=== PATIENT | female | born 1970 | race Hispanic/Latino ===

== ENCOUNTER 2025-01-26 10:03 | Outpatient (CLI) | payer OTHER, SELFPAY ==
--- NOTE | ~2025-01-26 | MM_ITS ---
EXAMINATION: MM scrn kd implant BI w flores HISTORY: Screening mammogram TECHNIQUE: Craniocaudal and mediolateral oblique 3-D tomosynthesis images with implant displacement a nd synthetic 2-D images were generated. Craniocaudal and mediolateral oblique views of the breasts wi thout implant displacement were obtained using full field digital mammography. CAD analysis was submi tted and interpreted. COMPARISON: No prior mammogram is available for comparison at this institution. BREAST PARENCHYMAL COMPOSITION: There are scattered areas of fibroglandular density. FINDINGS: There is asymmetry at the outer right breast. No parenchymal abnormality the left breast se en. No suspicious microcalcifications. IMPRESSION: Outer right breast asymmetry. Spot compression views and possibly ultrasound are recommended for furt her evaluation.. BI-RADS Category 0: Incomplete: Needs additional imaging evaluation. Reviewed, dictated and finalized at location . IMPRESSION: Outer right breast asymmetry. Spot compression views and possibly ultrasound ar e recommended for further evaluation.. BI-RADS Category 0: Incomplete: Needs additional imaging evaluation.
== END 2025-01-26 10:04 | disposition home or self-care (01) ==
LOC: ANHIMG 10:04
PROVIDERS: PCP Clinical Nurse Specialist; Visit Provider Obstetrics & Gynecology
DX: Z12.31 Encounter for screening mammogram for malignant neoplasm of breast (principal); N64.89 Other specified disorders of breast
CPT/HCPCS: 77063; 77067

== ENCOUNTER 2025-02-09 12:45 | Outpatient (CLI) | payer OTHER, SELFPAY ==
--- NOTE | ~2025-02-09 | MMUS_ITS ---
EXAMINATION: MM diag dk implant RT w flores, US breast RT limited HISTORY: Follow-up right breast asymmetry TECHNIQUE: Additional 3-D tomosynthesis images of the right breast were performed and synthetic 2-D i mages were generated. CAD analysis was submitted and interpreted. High resolution Limited right breas t ultrasound was performed. COMPARISON: 01/26/2025 BREAST PARENCHYMAL COMPOSITION: Not dense: There are scattered areas of fibroglandular density. FINDINGS: MAMMOGRAPHIC FINDINGS: There is a persistent asymmetry in the mid lateral aspect breast at approximately 9:00 position witho ut discrete mass or architectural distortion. There are no suspicious calcifications. There is a subp ectoral right breast implant. ULTRASOUND: Limited right breast ultrasound: At 10:00, 2 cm from the nipple there is 2 mm cyst. At 9:00, 2 cm fro m the nipple there is 2 mm cyst. No suspicious masses to suggest malignancy. IMPRESSION: 1. No evidence for malignancy in the right breast. Benign findings. 2. Routine yearly screening mammogram and regular clinical breast examination are recommended. BI-RADS Category 2: Benign finding(s). Reviewed, dictated and finalized at location B. IMPRESSION: 1. No evidence for malignancy in the right breast. Benign findings. 2. Routine yearly screening mammogram and regular clinical breast examination a re recommended. BI-RADS Category 2: Benign finding(s).
--- OUTSIDE RECORDS SUMMARY | 2025-02-09 12:54 | XMS_ITS | Data Portability ---
Author Organization [place] - Mery OBKASIE CASEY, [employer] Address 1944 [address] [place] [address] Assessment No assessment recorded. Plan of Treatment Reminders Order Date Submit Date Provider Last Modified By Organization Details Last Modified Time Details Appointments None recorded. Lab unlisted lab - igp, apt HPV,rfx 16/18,45-1 16690-B 2018 019 [place] [facility], [address] [place], [address], 0 05:00:23 Referral None recorded. Procedures None recorded. Surgeries None recorded. Imaging MAMMO, screening, digital, bilateral 2018 019 [place] [facility], [address] [place], [address], 9 09:44:25 Medication Orders None recorded. Patient TargetsNo targets recorded. Patient Instructions Encounter Date Encounter Id Patient Instructions Last Modified By Organization Details Last Modified Time 03/07/2019 [id number] discussion: 30 minutes. f/u annual or sooner as needed [email or web address] Not available 03/07/2019 17:58:35 Reason for Referral None Reported. Results Created Date Observation Date Name Description Value Unit Range Abnormal Flag Note LastModifiedBy Organization Detail LastModifiedTime 03/07/20 19 03/10/2019 CT + NG + TV, DNA, urine /swab chlamydia trachomatis by multiplex PCR Not Detect ed Not Available [facility] ([facility]) [address], [place], [address], 03/13/2019 15:13:40 03/07/20 19 03/10/2019 CT + NG + TV, DNA, urine /swab GC by multiplex PCR Not Detect ed Not Available [facility] ([facility]) [address], [place], [address], 03/13/2019 15:13:40 03/07/20 19 03/10/2019 CT + NG + TV, DNA, urine /swab trichomonas by multiplex PCR Not Detect ed Not Available [facility] ([facility]) [address], [place], [address], 03/13/2019 15:13:40 03/07/20 19 03/10/2019 pap, LB + HR HPV + refle x HPV (16+1 8) HPV high risk DNA (non 16/18) Not Detect ed Not Available [facility] ([facility]) [address], [place], [address], 03/13/2019 15:13:41 03/07/20 19 03/10/2019 pap, LB + HR HPV + refle x HPV (16+1 8) HPV high risk DNA type 18 Not Detect ed Not Available [facility] ([facility]) [address], [place], [address], 03/13/2019 15:13:41 03/07/20 19 03/10/2019 pap, LB + HR HPV + refle x HPV (16+1 8) HPV high risk DNA type 16 Not Detect ed CHLAM YDIA TRACH OMATI S BY MULTI PLEX PCR (1,5, 6) GC BY MULTI PLEX PCR (1,5, 6) TRICH OMONA S BY MULTI PLEX PCR (1,5, 6) HPV High Risk DNA (Non 16/18 ) (2,3, 4,5,6 ) HPV High Risk DNA Type 18 (2,3, 4,5,6 ) HPV High Risk DNA Type 16 (2,3, 4,5,6 ) (1) This test is an in vitro test for the detec tion of sexua lly trans mitte d infec tions (STIs ) in clini monica speci mens. The test utili zes ampli ficat ion of targe t DNA by the Polym erase Chain React ion (PCR) based on dual primi ng oligo nucle otide techn ology and detec ts STI DNA. (2) The emelina (R) HPV test is FDA-c leare d for ThinP rep(R ) speci mens and detec ts genom ic HPV DNA in the polym orphi c L1 regio n in 14 subty pes: Type 16, Type 18, and other high risk types (31,3 3,35, 39,45 ,51,5 2,56, 58,59 ,66,6 8). The test has been modif ied and valid ated for use in SureP ath(T M) speci mens. (3) HPV types 16 and/o r 18 that were Not Detec darcy were undet ectab le or below the pre-s et thres hold. (4) The non-r epeat rate for HPV genot yping assay s varie s from 5 to 15%. In the NILM cytol ogy categ ory, there is a low posit ajay predi ctive value (PPV = 15-20 %) for CIN2+ with a posit ajay high risk HPV resul t. (5) This test was evalu ated and its perfo rmanc e sheridan cteri stics deter mined by [facility]. It has not been clear ed or appro tali by the U.S. Food and Drug Admin istra tion. The FDA has deter mined that such clear ance or appro mable is not neces rebeca. [facility] is certi fied under the Clini monica Labor atory Impro vemen t Amend ments of 1987 (CLIA ) as quali fied to perfo rm high compl exity clini monica testi ng. This test is used for clini monica purpo ses. It shoul d not be regar ded as inves tigat ional or for resea rch. (6) Resul ts shoul d be inter prete d toget her with past and curre nt clini monica and labor atory data. Not Available [facility] ([facility]) [address], [place], [address], 03/13/2019 15:13:41 03/07/20 19 03/13/2019 pap, LB + HR HPV + refle x HPV (16+1 8) Pap, liquid-based NILM DIAGN OSIS: Negat ajay for intra epith elial lesio n or malig kenn ADEQU ACY: Satis facto ry for evalu ation / Endoc ervic al/tr ansfo rmati on zone compo nent prese nt. COMME NT: This Pap smear was scree nevaeh with the laurel tance of the CYTYC ThinP rep(T M) Imagi ng Syste m and scree nevaeh by a cytot echno logis t. SPECI MEN SOURC E: Pap and HPV DNA Genot yping 16,18 , CERVI MONICA ENDOC ERVIC AL CLINI [facility] INFOR MATIO N: LMP: N/A Provi ded Diagn osis Codes : Z11.5 1 Cervi covag inal cytol ogy shoul d be consi dered a scree robby proce dure subje ct to false negat mitchell and false posit mitchell. Resul ts are more relia ble when a satis facto ry sampl e is obtai nevaeh on a regul ar repet itive basis , and shoul d be inter prete d toget her with past and curre nt clini monica data. ELECT TALISHA JACY MELLISA D BY: Scree nevaeh By: Matteo ackerman, CT (ASCP ) Case Elect talisha jacy Mellisa d 03/13 Cytol ogy scree robby and inter preta tion perfo rmed at: [facility] [address] [place] [address] Not Available [facility] ([facility]) [address], [place], [address], 03/13/2019 15:13:41 03/14/20 19 03/14/2019 MAMMO , kristene robby, digit al, bilat eral No observ ation record ed. [facility] [address] [place], [address], 03/14/2019 14:19:37 Result Notes None recorded. Problems No Known Problems Procedures Surgical History Date Name Laterality Status Provider Name and Address Organization Details Recorded Time 03/04/20 18 Date of Last Pap Smear completed [employer] 03/07/2019 16:20:28 02/27/20 18 Most Recent Mammogram completed [facility] 03/07/2019 16:20:42 07/30/19 15 abdominoplasty completed [facility] 03/07/2019 16:30:08 07/30/19 13 Gastroplasty duodenal switch completed [facility] 03/07/2019 16:29:46 07/30/19 08 Gastroplasty w/o v-band completed [facility] 03/07/2019 16:28:27 07/30/18 93 tonsillectomy completed [facility] 03/07/2019 16:28:07 Imaging Results None recorded. Procedure Notes None recorded. Medical Equipment None Reported. Allergies Allergen ID Allergen Name Allergen Category Reaction Reaction Severity Criticality Documentation Date Start Date Code Code System Note Provider Name and Address Organization Details Recorded Time 06489 Bactrim medicatio n rash severe Not available 03/07/2019 58584 9 [employer] 9 16:16:23 Medications Name Sig Start Date Stop Date Status Note LastModified by Organization Details LastModified Time ammonium lactate 12 % lotion 2018 completed Not Available Not Available Not Available fluocinonide 0.05 % topical cream 2018 completed Not Available Not Available Not Available Vitals Date Recorded Body height Body mass index (BMI) Body weight Systolic And Diastolic Provider Name and Address Organization Details Last Updated DateTime 03/07/2019 162.56 cm 30.7 kg/m2 85320.03 g 117/66 mm[Hg] [facility]ANE [facility] [employer] 03/07/2019 16:33:05 Social History Question Answer Notes LastModified by [employer] Details LastModified Time Tobacco Smoking Status Never Smoker DUANE MCGR[facility] [employer] 03/07/2019 16:25:02 What Is Your Level Of Caffeine Consumption? Moderate Information not available 03/07/2019 What Type Of Diet Are You Following? REGULAR Information not available 03/07/2019 Which Illicit Or Recreational Drugs Have You Used? None Information not available 03/07/2019 Education 2 Year College Information not available 03/07/2019 Marital Status Informatio n not available 03/07/2019 Performs Monthly Self-breast Exam? Yes Information no t available 03/07/2019 How Much Tobacco Do You Smoke? No Information not available 03/07/2019 General Stress Level Low Information not available 03/07/2019 How Many Years Have You Smoked Tobacco? 0 Information not available 03/07/2019 Sex: Unknown Functional Status Question Answer Note LastModified by [employer] Details LastModified Time What is your level of alcohol consumption? Occasional Information not available 03/07/2019 Do you or have you ever used smokeless tobacco? 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 Never used electronic cigarettes Information not available 03/07/2019 What is your exercise level? Occasional Information not available 03/07/2019 Mental Status None recorded. Family History Relationship Description Onset Age of this Age Resolved Age Notes LastModified by Organization Details LastModified Time Mother Hypertensive disorder 40 sdaravina Not available 2018 16:23:34 Father Malignant neoplasm of squamocolumn ar junction of cervix 72 sdaravina Not available 2018 16:24:50 Medical History Condition Response Anesthesia complications N High Blood Pressure N Breast Cancer N Kidney or Bladder Problems N Thyroid Problems N GI Problems N Lung Disease N Depression N Defects or Inherited Disease N Breast Problem N Anemia N Skin Cancer/Melanoma N Psychiatric Illness N Anxiety Disorder N Ovarian Cancer N Diabetes N Arthritis N Headaches or Migraines N Infertility N Cancer N Asthma N High cholesterol N Endometriosis N Hepatitis N Heart Disease N Gynecological History Statement/Question Response Abnormal Pap N Flow Light Date of LMP 10/18/2018 STIs/STDs N HPV Vaccine N Duration of Flow (days) 0 Most Recent Mammogram 02/26/2018 Age at Menarche 13 Current Control Method IUD Date of Last Colonoscopy Frequency of Cycle (Q days) 0 Most Recent Bone Density Sexually Active? Y Menses Monthly Y Sexual Problems? N Date of Last Pap Smear 03/04/2018 Current sexual partner NEW? N Hormone Replacement Therapy N Obstetrics History GPAL:G 3 P 0 0 1 2 Type Value Spontaneous 1 Living 2 Total 3 Past Encounters Encounter ID Performer Location Encounter Start Date Encounter Closed Date Diagnosis/Indication Diagnosis SNOMED-CT Code Diagnosis ICD10 Code Diagnosis Note [id number] LUAN MENDOSA PA-C [facility] [address] [address] 03/07/2019 15:59:53 03/07/2019 17:12:39 Gynecologic examination 01509784 Z01.419 Viral screening 43347077 4 Z11.51 Screening for malignant neoplasm of breast 416645555 Z12.31 Contraception care 61091 5005 Z30.40 Mirena IUD since 2016 Screening for malignant neoplasm of cervix 066961612 Z12.4 Health Concerns Section Related Observation LastModified by Organization Detai ls LastModified Time None Recorded Concern Status LastModified by Organization Details LastModified Time None Recorded Advance Directives Directive None Recorded Payers Insurance Date Sequence Insurance Name Policy Number Policy Looney Covered Member ID Looney Member ID Guarantor Name 03/13/2019 1 AETWENDI [id number] Funmi Paul [id number] Funmi Paul Notes Date Note Type Note Provider Name and Address Organization Details Recorded Time 03/07/2019 text/html Annual GYNReport ed bypatient.History: no gynecologic complaints; no change in interval history Menstrual cycle:Normal menses Urinary symptoms:No hematuria; No incontinence Vulva:No genital lesion Vagina:Normal vaginal discharge Breast:No breast pain; No breast lump; No nipple discharge Current Contraception:Intr auterine device (iud) (Mirena 2016); Partner had vasectomy (Patient insisted on Mirena IUD insertion because she was still concerned for ) Sexual complaints:No sexual complaints; No pain during intercourse; Normal libido Menopausal Symptoms:No menopausal symptoms; Normal vaginal lubrication Psychological symptoms:No depression; No anxiety; No PMDD Preventive measures:Encourage self breast examination; Encourage regular exercise; Encourage no tobacco use; Needs to schedule mammogram JEREMI Vidal [facility] 03/07/2019 17:58:44 OBGyn Episode Ob Episode Information Episode Created Date Number of Fetuses Patient Bloodtype Patient rh Status Prepregnancy Weight lbs Domestic Partner Domestic Partner Phone Father Name Coppersmith Apprentice Status 03/07/20 19 1 CLOSED Fetus Data First Name Last Name Admitted to NICU Weight (g) Sex Living Outcome Pediatric Complications Fetus ID Race Codes Race Delivery Type 4025.62 9 M Full Term [id number] Young Calculation Initial Young Date Initial Exam Date Initial Exam Provider Initial Ultrasound Date Last Menstrual Period Date Ultra Sound Weeks Gestation 0 Eighteen To Twenty Week Young Update Ultra Sound Date Fundal Height At Umbil Quickening Date Ultra Sound Latest Weeks Gestation Final Young Confirmed By Final Young Confirmed Date Final Young Date Ultra Sound Latest Days Gestation 0 0 Menstrual History Last Menstrual Date Menses Monthly On Bcp Conception Prior Menses Frequency Hcg Plus Date Menarche Onset Age Delivery Information Delivery Date Delivery Type Labor Anesthesia Weeks Gestation Incision Type Labor Labor Length Hrs Delivered By Post Complications Tubal Sterilization Discharge Date Comments 5 39 Discharge Information Feeding Method Contraceptive Method Maternal HG B and HCT Levels Ob Episode Information Episode Created Date Number of Fetuses Patient Bloodtype Patient rh Status Prepregnancy Weight lbs Domestic Partner Domestic Partner Phone Father Name Coppersmith Apprentice Status 03/07/20 19 1 CLOSED Fetus Data First Name Last Name Admitted to NICU Weight (g) Sex Living Outcome Pediatric Complications Fetus ID Race Codes Race Delivery Type 3175.14 4 M Full Term [id number] Young Calculation Initial Young Date Initial Exam Date Initial Exam Provider Initial Ultrasound Date Last Menstrual Period Date Ultra Sound Weeks Gestation 0 Eighteen To Twenty Week Young Update Ultra Sound Date Fundal Height At Umbil Quickening Date Ultra Sound Latest Weeks Gestation Final Young Confirmed By Final Young Confirmed Date Final Young Date Ultra Sound Latest Days Gestation 0 0 Menstrual History Last Menstrual Date Menses Monthly On Bcp Conception Prior Menses Frequency Hcg Plus Date Menarche Onset Age Delivery Information Delivery Date Delivery Type Labor Anesthesia Weeks Gestation Incision Type Labor Labor Length Hrs Delivered By Post Complications Tubal Sterilization Discharge Date Comments 1 37 Discharge Information Feeding Method Contraceptive Method Maternal HG B and HCT Levels
--- OUTSIDE RECORDS SUMMARY | 2025-02-09 12:54 | XMS_ITS | Data Portability ---
Author Organization [facility], URGENT CARE Address [address] [place] [address] Assessment No assessment recorded. Plan of Treatment Reminders Order Date Submit Date Provider Last Modified By Organization Details Last Modified Time Details Appointments None recorded. Lab pap, LB + HR HPV + reflex HPV (16+18) - [id number] [address] [facility] [place] (Labs) (Xray), [address] [place] [address], [address], 6 11:09:47 CBC w/ auto diff [address] [facility] [place] ([place]ray), [address] [place] [address], [address], 6 12:27:02 T4, total, serum [address] [facility] [place]), [address] [place] [address], [address], 6 12:27:02 thyroxine, free index, serum [address] [facility] [place]), [address] [place] [address], [address], 6 12:27:02 TSH, serum or plasma [address] [facility] [place] (Xray), [address] [place] [address] [place], [address], 6 12:27:01 CMP, serum or plasma [address] [facility] [place] ([place]ray), [address] [place] [address], [address], 6 12:27:02 HbA1c (hemoglobi n A1c), blood [address] [facility] [place] ([place]), [address] [place] [address], [address], 6 12:27:02 lipid panel, serum [address] [facility] [place]), [address] [place] [address], [address], 6 12:27:02 T3 resin uptake w/ ratio (thbr), serum [address] [facility] [place]), [address] [place] [address], [address], 6 12:27:01 pap, LB + HR HPV + reflex HPV (16+18) - [id number] [address] [facility] [place] ([place]), [address] [place] [address], [address], 5 12:07:27 urinalysis , reflex culture [address] [facility] [place] ([place]ray), [address] [place] [address], [address], 5 12:07:02 Referral None recorded. Procedures None recorded. Surgeries None recorded. Imaging mammogram, screening 2015 016 [facility] (Registration Office), [address] [place], [address], 6 09:50:57 mammogram, screening 2014 015 [facility] (Registration Office), [address] [place], [address], 5 17:53:58 Medication Orders Zoloft 50 mg tablet 2015 016 [id number], [address], [place], [place], [id number], 6 17:49:53 Diflucan 150 mg tablet 2013 014 [facility] 3 [facility]43004, [address], [place], [place], [id number], 5 17:03:28 Lotrisone 1 %-0.05 % topical cream 2013 014 [facility]22416, [address], [place], [place], [phone], 6 16:16:45 Zithromax Z-Maxx 250 mg tablet 2013 014 [facility] #[id number], [address] [place], [id number], 4 17:53:46 Patient TargetsNo targets recorded. Patient Instructions Encounter Date Encounter Id Patient Instructions Last Modified By Organization Details Last Modified Time 12/18/2013 [id number] intrauterine device (IUD) insertion: care instructions Not available 12/18/2013 18:48:08 heavy menstrual periods: care instructions Not available 12/18/2013 18:48:08 IUD removal: car e instructions Not available 12/18/2013 18:48:08 Reason for Referral None Reported. Results Created Date Observation Date Name Description Value Unit Range Abnormal Flag Note LastModifiedBy Organization Detail LastModifiedTime 11/26/19 15 11/25/2014 lques t labon e quest/labone SENT TO [facility]/ [facility] normal TESTS SENT TO LAB PREFE RENCE OF CUSTO GIOVANNI OR CUSTO MERS INSUR ANCE Not Available [facility] ([facility]) [address], [place], [address], 11/25/2014 11:14:20 12/20/19 14 12/18/2013 imagi ng/di agnos tic resul t No observ ation record ed. Not Available 12/19 09:54:26 11/26/19 15 11/11/2014 echo ardio gram No observ ation record ed. Becky Lopez MD [address] [place] [address] [address], [place], [address], 11/26/2014 09:34:28 12/02/19 15 12/01/2014 mammo gram, scree robby No observ ation record ed. [facility] (Registration Office) [address] [place], [address], 10/18/2015 16:46:11 12/07/19 16 12/03/2015 mammo gram, scree robby No observ ation record ed. [email or web address] (Registration Office) [address] [place], [address], 12/09/2015 16:30:47 Result Notes None recorded. Problems Name Problem SNOMED Code Status Onset Date Resolution Date Notes Provider Name and Address Organization Details Recorded Time Anxiety 92517900 Active Skinny Orozco [facility] 6 17:49:53 Irregular periods 67883364 Active Sudha castro [facility] 4 12:57:10 Menorrhagia 791150631 Active Skinny Orozco [facility] 4 18:48:08 Vaginitis 15973085 Active Skinny Orozco [facility] 4 18:09:03 Problem Notes None recorded. Procedures Surgical History Date Name Laterality Status Provider Name and Address Organization Details Recorded Time 4 IUD Insertion completed Skinny Orozco [facility] 12/18/2013 18:18:11 4 IUD Removal completed Skinny Orozco [facility] 12/18/2013 18:18:11 4 Date of Last Pap Smear completed Sudha Membreno [facility] 12/18/2013 17:45:16 Imaging Results None recorded. Procedure Notes None recorded. Medical Equipment None Reported. Allergies No known drug allergies Medications Name Sig Start Date Stop Date Status Note LastModified by Organization Details LastModified Time Santyl 250 unit/gram topical ointment active Not Available Not Available Not Available Mirena 21 mcg/24 hr (up to 8 years) 52 mg intrauterine device active Not Available Not Available Not Available doxycycline hyclate 100 mg capsule active Not Available Not Available N ot Available azithromycin 250 mg tablet TAKE 2 TABLETS (500 MG) BY ORAL ROUTE ONCE DAILY FOR 1 DAY THEN 1 TABLET (250 MG) BY ORAL ROUTE ONCE DAILY FOR 4 DAYS active Not Available Not Available No t Available tramadol 37.5 mg-acetamino phen 325 mg tablet active Not Available Not Available Not Available fluconazole 150 mg tablet Take 1 tablet every 72 hours by oral route for 6 days. active Not Available Not Available Not Available Avelox 400 mg tablet active Not Available Not Available No t Available meloxicam 15 mg tablet active Not Available Not Available No t Available prednisone 20 mg tablet active Not Available Not Available Not Available Nexium 40 mg capsule,kailee yed release active Not Available Not Available Not Available hydrocodone 10 mg-acetamino phen 325 mg tablet active Not Available Not Available Not Available doxycycline monohydrate 100 mg tablet active Not Available Not Available Not Available tramadol 50 mg tablet active Not Available Not Available No t Available butalbital-a cetaminophen -caffeine 50 mg-325 mg-40 mg tablet active Not Available Not Available No t Available ondansetron 8 mg disintegrati ng tablet active Not Available Not Available No t Available alprazolam 0.5 mg tablet active Not Available Not Available Not Available Zoloft 50 mg tablet Take 1 tablet every day by oral route for 90 days. 2015 active Not Available Not Available Not Avai lable cephalexin 500 mg capsule active Not Available Not Available Not Available nitrofuranto in macrocrystal 100 mg capsule active Not Available Not Available Not Available clotrimazole -betamethaso ne 1 %-0.05 % topical cream APPLY TO THE AFFECTED AND SURROUNDING AREAS OF SKIN BY TOPICAL ROUTE 2 TIMES PER DAY IN THE MORNING AND EVENING FOR 2 WEEKS active Not Available Not Available No t Available hydrocodone 5 mg-acetamino phen 500 mg tablet active Not Available Not Available Not Available mupirocin 2 % topical ointment active Not Available Not Available Not Available Promethegan 25 mg rectal suppository active Not Available Not Available Not Available Transderm-Sc op 1 mg over 3 days transdermal patch active Not Available Not Available Not Available ibuprofen 600 mg tablet active Not Available Not Available Not Available methylpredni solone 4 mg tablets in a dose pack active Not Available Not Available No t Available diazepam 5 mg tablet active Not Available Not Available No t Available escitalopram 20 mg tablet active Not Available Not Available Not Available cyclobenzapr ine 5 mg tablet active Not Available Not Available Not Available nitrofuranto in monohydrate/ macrocrystal s 100 mg capsule active Not Available Not Available Not Available Xarelto 10 mg tablet active Not Available Not Available No t Available Vitals Date Recorded Respiratory rate Body weight Provider N stormy and Address Organization Details Last Updated DateTime 11/24/2014 18 /min 91572.30495 g [facility] 11/24/2014 17:03:28 Date Recorded Respiratory rate Body weight Heart rate Systolic And Diastolic Provider Name and Address Organization Details Last Updated DateTime 11/29/2015 18 /min 43375.58 7039 g 74 /min 112/78 mm[Hg] [facility] 11/29/2015 16:44:28 Date Recorded Body weight Provider Name an d Address Organization Details Last Updated DateTime 12/18/2013 02446.7792 g [facility] 12/18/2013 17:45:16 Date Recorded Body weight Body height Body mass index (BMI) Systolic And Diastolic Provider Name and Address Organization Details Last Updated DateTime 12/23/2013 40489.741 05 g 160.02 cm 29.2 kg/m2 128/84 mm[Hg] Sudha Membreno [facility] 12/23/2013 17:53:46 Date Recorded Body height Body weight Body mass index (BMI) Heart rate Respiratory rate Systolic And Diastolic Provider Name and Address Organization Details Last Updated DateTime 4 160.02 cm 16464.9 2579 g 29.6 kg/m2 78 /min 18 /min 128/82 mm[Hg] Sudha Membreno [facility] 4 17:41:05 Social History Question Answer Notes LastModified by Organizat ion Details LastModified Time Tobacco Smoking Status Never Smoker Sudha Membreno [facility] 12/18/2013 17:45:15 What Is Your Level Of Caffeine Consumption? Occasional Information not available 12/18/2013 How Much Tobacco Do You Chew? None Information not available 12/18/2013 What Type Of Diet Are You Following? REGULAR Information not available 12/18/2013 Education 4 Year College Informatio n not available 12/23/2013 Live Alone Or With Others? With Others Information not available 12/18/2013 Marital Status Informatio n not available 12/18/2013 Sex: Unknown Functional Status Question Answer Note LastModified by Organizat ion Details LastModified Time What is your level of alcohol consumption? 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 Occasional Information not available 12/18/2013 Mental Status None recorded. Family History Nothing Reported. Medical History Condition Response Thyroid Disease N Renal Failure N Lung Disease N Depression N Pneumonia N Pulmonary Hypertension N Breast Problem N Denegerative joint/disc disease N Anesthesia Complications N Lung Mass N Headaches/Migraines N Headache/Migraine N Hernia (what type/which side) N Deep Vein Thrombosis N Anxiety Disorder N Autoimmune disease N Over reactive Bladder N Osteomyelitis N Mental Disorder N Blood Clot N Acid Reflux (GERD) N Erectile dysfunction N Stroke N Chronic Kidney Disease N Bladder or Kidney Problems N High Cholesterol N Liver Disease N Renal insufficiency N Allergies/Hayfever N Osteoarthritis N Hospitalizations N MVP N Kidney or Bladder Problems N GI Problems N Acne N DVT N Peptic Ulcer Disease N Eating Disorder N Hepatitis C N Anemia N Prostate issues/BPH N Back Pain N Constipation N Heart Attack (ME) N GI Bleeding N Pulmonary Fibrosis N Attention Defecit Disorder N Psychiatric Illness N Diabetes N Bleeding Disorder N Blood Transfusions N AIDS/HIV N BiPolar N CVA N Abuse/Domestic Violence N defects N Asthma N Epilepsy N Heart problem N Peripheral Vascular Disease N Ulcerative Colitis N Sleep Apnea N GERD/Reflux N Hepatitis N Seizures Disorder N Pulmonary Embolism N Pre-Eclampsia N Hypertension N Chicken Pox N Gynecological History Statement/Question Response STIs/STDs N HPV Vaccine N Abnormal Pap N Date of Last Pap Smear 08/11/2013 Current Control Method IUD Date of LMP 11/22/2015 Hormone Replacement Therapy N Obstetrics History GPAL:G 0 P 0 0 0 0 Past Encounters Encounter ID Performer Location Encounter Start Date Encounter Closed Date Diagnosis/Indication Diagnosis SNOMED-CT Code Diagnosis ICD10 Code [id number] [place] [id number] [facility] 12/18/2013 17:15:18 12/19/2013 09:56:14 Removal of intrauterine device 95841273 Insertion of intrauterine contraceptive device 04248025 Mirena IUD removed without incident, new Mirena IUD inserted, post procedure transvagin al US confirmed correct placement. Will prophylaxi s with Z MAXX. FU in one week Uses contraception 59163027 [facility] 302240945 [id number] [facility] [id number] 12/23/2013 17:38:19 12/24/2013 16:10:05 IUD check [id number] No complaints , strings present, trimmed to appropriat e length. [facility] in [id number] [facility] [place] [id number] 3 01/13/2014 17:21:42 01/13/2014 18:18:00 [facility]aginitis 87346660 [id number] [facility] [address] [id number] 11/24/2014 16:55:16 11/25/2014 11:07:29 Gynecologic examination 62213694 Screening mammography 53815772 IUD check [id number] No complaints , strings present, trimmed to appropriat e length. FU in 1 year 11-24-14, IUD string present at os [id number] tono Retired-O [employer]/ [address] [place] [id number] 11/29/2015 16:09:32 11/30/2015 03:45:43 Gynecologic examination 94185792 Z01.419 Screening mammography 24 019846 Z12.31 Anxiety 84240888 F41.9 Discussed options, will try on zoloft, to fu in 1 month, if this does not work may consider buspar. IUD check 156809494 Z30. 431 No complaints , strings present, trimmed to appropriat e length. FU in 1 year 11-24-14, IUD string present at os 11-29-15, IUD strings in place. Health Concerns Section Related Observation LastModified by Organization Detai ls LastModified Time None Recorded Concern Status LastModified by Organization Details LastModified Time None Recorded Advance Directives Directive None Recorded Payers Insurance Date Sequence Insurance Name Policy Number Policy Looney Covered Member ID Looney Member ID Guarantor Name 12/03/2013 2 *SELF PAY* Dianne Paul 06/27/2017 1 [employer] [id number] Funmi Paul [id number] Funmi Paul Notes Date Note Type Note Provider Name and Address Organization Details Recorded Time 12/18/2013 text/html Mirena removal a nd [facility] insertion [facility]/18/2013 18:48:33 11/29/2015 text/html Annual GYNReport ed bypatient.Menstrua l cycle:Normal menses Urinary symptoms:No hematuria; No incontinence Vulva:No genital lesion Vagina:Normal vaginal discharge Breast:No breast pain; No breast lump; No nipple discharge Sexual complaints:No sexual complaints; No pain during intercourse; Normal libido Menopausal Symptoms:No menopausal symptoms; Normal vaginal lubrication Psychological symptoms:No depression; No anxiety; No PMDDNotes: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 Had taken lexapro in past but made her sleepy. [facility] 11/29/2015 17:50:14 OBGyn Episode No OBEpisode recorded.
--- OUTSIDE RECORDS SUMMARY | 2025-02-09 12:54 | XMS_ITS ---
Author Organization Unknown Patient Care team information Name Category Status Period Participants - - Proposed period not known -
--- OUTSIDE RECORDS SUMMARY | 2025-02-09 12:54 | XMS_ITS | Data Portability ---
Author Organization [facility] [place] [employer] Address [address] [facility] [address] [place] [address] Assessment Encounter Date Assessment Date Assessment LastModified by Organization Details LastModified Time 04/19/2023 04/19/2023 patient here in follow-up for left shoulder injury. I have given her injection Kenalog and lidocaine which she tolerated well. I will see her back in 2 weeks to check her progress. 60 mg Kenalog [id number] [email or web address] Not available 04/19/2023 15:30:08 05/03/2023 05/03/2023 patient here in follow-up for left shoulder pain. She continues to have pain and difficulty. We are going to set her up for an MRI of the shoulder. I will see her back when that has been completed. [email or web address] Not available 05/08/2023 09:55:29 05/22/2023 05/22/2023 patient here in follow-up for left shoulder. Her MRI demonstrates no rotator cuff tear but she does have a down turned a chromium an AC joint arthrosis. We had discussed these findings and impingement. We discussed operative versus non operative management. She wants to proceed with non operative management at this point. I will see her back as needed. [email or web address] Not available 05/24/2023 09:56:36 Plan of Treatment Reminders Order Date Submit Date Provider Last Modified By Organization Details Last Modified Time Details Appointments None recorded. Lab None recorded. Referral None recorded. Procedures None recorded. Surgeries None recorded. Imaging MAMMO, diagnostic, digital, unilateral - Right Breast. Ultrasound right breast to follow , 4mm nodule at 8 o'clock on right breast 2022 023 [facility] (Scheduling), [address] [place] [address] [place], [address], 19:50:44 Medication Orders Valium 5 mg tablet 2022 023 [id number], [address], [id number], 09:56:43 Patient TargetsNo targets recorded. Patient Instructions Encounter Date Encounter Id Patient Instructions Last Modified By Organization Details Last Modified Time 03/05/2023 [id number] breast lumps: care instructions [email or web address] Not available 03/05/2023 18:52:44 Reason for Referral None Reported. Results Created Date Observation Date Name Description Value Unit Range Abnormal Flag Note LastModifiedBy Organization Detail LastModifiedTime 04/05/2003/29/2023 ina MILLER unila teral Allian ceHeal [facility] [place] [place] Name: OSMAN MOTT [address] Phys: [place] [address] : 1969 Age: 53 Sex: F Acct: [id number] Loc: ALAN. Exam Date: 2022 Status : DEP CLI Qualit y Care, Right Here Radiol ogy No: [id number] Unit No: [id number] EXAM# TYPE/E XAM RESULT [id number] Right [id number] US/W C US Breast Unilat eral Ri EXAM: WC Digita l Diag Unil Right, WC US Breast Unilat eral Right COMPAR TIFFANY: Mammog willow 2019 HISTOR Y: Right breast lump FINDIN GS: Mammog willow: No suspic ious mass or calcif icatio n in the right breast . An intact silico ne implan t is noted. Ultras ound: Target ed ultras ound of the area of intere st in the right breast demons trates focal increa sed areas of echoge nicity in a subder mal locati on at the 9:00 and 7:00 positi ons. IMPRES ELIEL: Focal areas of increa sed subdur al echoge nicity likely repres ent fat necros is or scarri ng. Follow -up diagno stic mammog willow and ultras ound in 3 months is recomm ended. ACR BI-RAD S Catego ry 3: Probab ly Benign Findin gs, Short Interv al Follow -Up Sugges darcy Discla antonia : Accord ing to the [facility] an Cancer Societ y Women ages 40 to 44 should have the choice to start annual breast cancer screen ing with mammog ashley (x rays of the breast ) if they wish to do so. Women age 45 to 54 should get mammog ashley every year. Women 55 and older should switch to mammog ashley every 2 years, or can contin ue yearly screen ing. Screen ing should contin ue as long as a woman is in good health and is expect ed to live 10 more years or longer . All women should be famili ar with the known benefi ts, limita tions, and potent ial harms linked to breast cancer screen ing. They also should know how their breast s normal ly look and feel and report any breast change s to a health care provid er right away. A negati ve Mammog deirdre report should not discou rage follow up or biopsy of a clinic ally signif icant findin g and/or abnorm ality. Dense breast tissue may obscur e small neopla sms. Breast MRI is recomm ended for women with an approx imatel y 20-25% or greate r lifeti nc PAGE 1 Signed Report (JA NUED) Jared Irizarry [facility] [place] [place] Name: IDALMIS RAUSCHOSMAN [address] [place] [address] Phys: [place] [address] : 1969 Age: 53 Sex: F Acct: [id number] Loc: [facility]. Exam Date: 2022 Status : DEP CLI Qualit y Care, Right Here Radiol ogy No: [id number] Unit No: [id number] EXAM# TYPE/E XAM RESULT [id number] [facility] Digita l Diag Unil Right [id number] 477 [facility]/W C US Breast Unilat eral Ri risk of breast cancer , includ ing women with a strong family histor y of breast or ovaria n cancer and women who have been treate d for Hodgki n's diseas e. A result letter will be mailed to the patien t within 30 days of exam. Thank you for dru batista us to partic ipate in the care of your patien t. Electr onical ly signed by Willy izaguirre M.D. on 04/05/20 6:48 PM REPORT SIGNED IN OTHER VENDOR SYSTEM 2022 Report ed By: Willy izaguirre MD CC: No Primar y Care Physic chelsea; Marissa Ricks DO Techno logist : TESSIE RIZO RT(R)( M); Natalie Bansal RT(R) Dictat ed Date/T alex: 2022 (1849) Transc riptio nist: PSCRIB E Printe d Date/T alex: 2022 ([id number]) PAGE 2 Signed Report [email or web address] [facility] [address] [place] [address], [place], [address], 04/09/2023 09:12:57 04/05/20 23 03/29/2023 MAMMO , diagn ostic , digit al, unila teral Allian ceHeal [facility] [place] [place] Name: OSMAN MOTT [address] [place] [address] Phys: [place] [address] : 1969 Age: 53 Sex: F Acct: [id number] Loc: [facility]. Exam Date: 2022 Status : DEP CLI Qualit y Care, Right Here Radiol ogy No: [id number] Unit No: [id number] EXAM# TYPE/E XAM RESULT [id number] [facility]/ WC Digita l Diag Unil Right [id number] 477 [facility]/W C US Breast Unilat eral Ri EXAM: WC Digita l Diag Unil Right, WC US Breast Unilat eral Right COMPAR TIFFANY: Mammog willow 2019 HISTOR Y: Right breast lump FINDIN GS: Mammog willow: No suspic ious mass or calcif icatio n in the right breast . An intact silico ne implan t is noted. Ultras ound: Target ed ultras ound of the area of intere st in the right breast demons trates focal increa sed areas of echoge nicity in a subder mal locati on at the 9:00 and 7:00 positi ons. IMPRES ELIEL: Focal areas of increa sed subdur al echoge nicity likely repres ent fat necros is or scarri ng. Follow -up diagno stic mammog willow and ultras ound in 3 months is recomm ended. ACR BI-RAD S Catego ry 3: Probab ly Benign Findin gs, Short Interv al Follow -Up Sugges darcy Discla antonia : Accord ing to the [facility] an Cancer Societ y Women ages 40 to 44 should have the choice to start annual breast cancer screen ing with mammog ashley (x rays of the breast ) if they wish to do so. Women age 45 to 54 should get mammog ashley every year. Women 55 and older should switch to mammog ashley every 2 years, or can contin ue yearly screen ing. Screen ing should contin ue as long as a woman is in good health and is expect ed to live 10 more years or longer . All women should be famili ar with the known benefi ts, limita tions, and potent ial harms linked to breast cancer screen ing. They also should know how their breast s normal ly look and feel and report any breast change s to a health care provid er right away. A negati ve Mammog deirdre report should not discou rage follow up or biopsy of a clinic ally signif icant findin g and/or abnorm ality. Dense breast tissue may obscur e small neopla sms. Breast MRI is recomm ended for women with an approx imatel y 20-25% or greate r lifeti me PAGE 1 Signed Report (JA NUED) Jared Irizarry [facility] [place] [place] Name: IDALMIS RAUSCHOSMAN [address] Phys: [place] [address] : 1969 Age: 53 Sex: F Acct: [id number] Loc: [facility]. Exam Date: 08/31/ 2023 Status : DEP CLI Qualit y Care, Right Here Radiol ogy No: [id number] Unit No: [id number] EXAM# TYPE/E XAM RESULT [id number] [facility]/ WC Digita l Diag Unil Right [id number] [facility]/W C US Breast Unilat eral Ri risk of breast cancer , includ ing women with a strong family histor y of breast or ovaria n cancer and women who have been treate d for Hodgki n's diseas e. A result letter will be mailed to the patien t within 30 days of exam. Thank you for allowi ng us to partic ipate in the care of your patien t. Electr onical ly signed by Willy izaguirre M.D. on 04/05/20 6:48 PM REPORT SIGNED IN OTHER VENDOR SYSTEM 2022 Report ed By: Willy izaguirre MD CC: No Primar y Care Physic chelsea; Marissa Ricks DO Techno logist : TESSIE RIZO RT(R)( M); Natalie Bansal RT(R) Dictat ed Date/T alex: 2022 (1849) Transc riptio nist: PSCRIB E Printe d Date/T alex: 2022 (1849) PAGE 2 Signed Report [email or web address] [place] [address] Imaging [address] [place], [address], 04/09/2023 09:29:05 04/05/20 23 03/29/2023 MAMMO , diagn ostic , unila teral No observ ation record ed. [facility] ([facility]) [address] [place] [address] [place], [address], 04/09/2023 18:47:19 05/13/2005/11/2023 MRI, hector thompson, w/o contr ast Allian ceHeal [facility] [place] [place] Name: OSMAN MOTT [address] Phys: [place] [address] : 1969 Age: 53 Sex: F [phone] Acct: [id number] Loc: MRI. Exam Date: 2022 Status : REG CLI Qualit y Care, Right Here Radiol ogy No: [id number] Unit No: [id number] EXAM# TYPE/E XAM RESULT [id number] MRI/MR I Should er Withou t Con Left EXAM: MRI Should er Withou t Con Left COMPAR TIFFANY: None. HISTOR Y: pain with motion , no known injury TECHNI QUE: Multip lanar, multis equenc e imagin g of the left should er withou t gadoli nium. Standa rd instit utiona l protoc ol with no T1 sequen ce. FINDIN GS: The acromi on is type I. Latera l and mild anteri or downsl oping. AC joint intact withou t arthro sis. Trace subacr omial edema. There is thicke robby and intrin sic signal involv ing the owner operator ior supras pinatu s and infras pinatu s tendon s compat ible with tendin osis. No fluid signal indica tive of tear. No tendon retrac tion. Teres minor and subsca pulari s tendon s intact with normal signal charac terist ics. Muscul ar bulk of the rotato r cuff is mainta ined. Glenoh umeral alignm ent is preser tali. The glenoi d labrum appear s grossl y intact on this nonart hrogra phic exam. Long head biceps tendon is normal ly seated in the bicipi duane groove . The biceps labral attach ment is intact . Mild edema and soft tissue thicke robby in the rotato r interv al and along the inferi or capsul e. Subcut aneous soft tissue s grossl y unrema rkable . IMPRES ELIEL: 1. Supras pinatu s and infras pinatu s tendin osis. No MR eviden ce for rotato r cuff tear or other senior internet sales consultant al derang ement. 2. Mild latera l acromi al downsl oping and trace subacr omial bursit is. Correl ate for imping ement. 3. Soft tissue thicke robby and edema of the capsul e sugges tive of capsul itis. PAGE 1 Signed Report (JA NUED) Jared clementsHeal [facility] [place] [place] Name: OSMAN MOTT [address] Phys: [place] [address] : 1969 Age: 53 Sex: F [phone] Acct: [id number] Loc: MRI. Exam Date: 2022 Status : REG CLI Qualit y Care, Right Here Radiol ogy No: [id number] Unit No: [id number] EXAM# TYPE/E XAM RESULT [id number] MRI/MR I Should er Withou t Con Left Electr onical ly signed by Rell kirkland md on 2022 1:03 PM REPORT SIGNED IN OTHER VENDOR SYSTEM 2022 Report ed By: Rell kirkland md CC: No Primar y Care Physic chelsea; Franklin Maldonado M.D. Techno logist : NATHAN DOWNS RT(R)( CT) Dictat ed Date/T alex: 2022 (1305) Transc riptio nist: PSCRIB E Printe d Date/T alex: 2022 (1305) PAGE 2 Signed Report [email or web address] [facility] [address], [place], [address], 05/14/2023 10:51:38 Result Notes Documentation Provider Name and Address Organization Details Recorded Time Mammo, Diagnostic, Digital, Unilateral : [facility] Name: TYLER LARSON [address] Phys: [place] [address] : 1970 Age: 53 Sex: F [phone] Acct: [id number] Loc: ALAN. Exam Date: 03/29/2023 Status: DEP CLI Quality Care, Right Here Radiology No: [id number] Unit No: [id number] EXAM# TYPE/EXAM RESULT [id number] [facility]/WC Digital Diag Unil Right [id number] [facility]/WC US Breast Unilateral Ri EXAM: WC Digital Diag Unil Right, WC US Breast Unilateral Right COMPARISON: Mammogram 05/11/2020 HISTORY: Right breast lump FINDINGS: Mammogram: No suspicious mass or calcification in the right breast. An intact silicone implant is noted. Ultrasound: Targeted ultrasound of the area of interest in the right breast demonstrates focal increased areas of echogenicity in a subdermal location at the 9:00 and 7:00 positions. IMPRESSION: Focal areas of increased subdural echogenicity likely represent fat necrosis or scarring. Follow-up diagnostic mammogram and ultrasound in 3 months is recommended. ACR BI-RADS Category 3: Probably Benign Findings, Short Interval Follow-Up Suggested Disclaimer : According to the [place] [employer] Women ages 40 to 44 should have the choice to start annual breast cancer screening with mammograms (x rays of the breast) if they wish to do so. Women age 45 to 54 should get mammograms every year. Women 55 and older should switch to mammograms every 2 years, or can continue yearly screening. Screening should continue as long as a woman is in good health and is expected to live 10 more years or longer. All women should be familiar with the known benefits, limitations, and potential harms linked to breast cancer screening. They also should know how their breasts normally look and feel and report any breast changes to a health care provider right away. A negative Mammography report should not discourage follow up or biopsy of a clinically significant finding and/or abnormality. Dense breast tissue may obscure small neoplasms. Breast MRI is recommended for women with an approximately 20-25% or greater lifetime PAGE 1 Signed Report (CONTINUED) [facility] Name: TYLER LARSON [address] Phys: [place] [address] : 1970 Age: 53 Sex: F [phone] Acct: [id number] Loc: [facility]. Exam Date: 03/29/2023 Status: DEP [facility] Quality Care, Right Here Radiology No: [id number] Unit No: [id number] EXAM# TYPE/EXAM RESULT [id number] [facility]/ Digital Diag Unil Right [id number] [facility]/ US Breast Unilateral Ri risk of breast cancer, including women with a strong family history of breast or ovarian cancer and women who have been treated for Hodgkin's disease. A result letter will be mailed to the patient within 30 days of exam. Thank you for allowing us to participate in the care of your patient. REPORT SIGNED IN OTHER VENDOR SYSTEM 04/05/2023 Reported By: Willy Begum MD CC: No Primary Care Physician; Ruth Ricks DO Technologist: KEELY FUCHS RT(R)(M); Natalie Bansal RT(R) Dictated Date/Time: 04/05/2023 (1849) Brood Station Manager: PSCRIBE Printed Date/Time: 04/05/2023 (1849) PAGE 2 Signed Report Maura AARON Castaneda [facility] [place] [facility] [place] 04/09/2023 09:29:05 Mri, Shoulder, W/o Contrast : [facility] Name: TYLER LARSON [address] Phys: [place] [address] : 1970 Age: 53 Sex: F [phone] Acct: [id number] Loc: MRI. Exam Date: 05/11/2023 Status: REG CLI Quality Care, Right Here Radiology No: [id number] Unit No: [id number] EXAM# TYPE/EXAM RESULT [id number] MRI/MRI Shoulder Without Con Left EXAM: MRI Shoulder Without Con Left COMPARISON: None. HISTORY: pain with motion, no known injury TECHNIQUE: Multiplanar, multisequence imaging of the left shoulder without gadolinium. Standard institutional protocol with no T1 sequence. FINDINGS: The acromion is type I. Lateral and mild anterior downsloping. AC joint intact without arthrosis. Trace subacromial edema. There is thickening and intrinsic signal involving the posterior supraspinatus and infraspinatus tendons compatible with tendinosis. No fluid signal indicative of tear. No tendon retraction. Teres minor and subscapularis tendons intact with normal signal characteristics. Muscular bulk of the rotator cuff is maintained. Glenohumeral alignment is preserved. The glenoid labrum appears grossly intact on this nonarthrographic exam. Long head biceps tendon is normally seated in the bicipital groove. The biceps labral attachment is intact. Mild edema and soft tissue thickening in the rotator interval and along the inferior capsule. Subcutaneous soft tissues grossly unremarkable. IMPRESSION: 1. Supraspinatus and infraspinatus tendinosis. No MR evidence for rotator cuff tear or other internal derangement. 2. Mild lateral acromial downsloping and trace subacromial bursitis. Correlate for impingement. 3. Soft tissue thickening and edema of the capsule suggestive of capsulitis. PAGE 1 Signed Report (CONTINUED) [facility] Name: TYLER LARSON [address] [place] [address] Phys: [place] [address] : 1970 Age: 53 Sex: F [phone] Acct: [id number] Loc: MRI. Exam Date: 05/11/2023 Status: REG CLI Quality Care, Right Here Radiology No: [id number] Unit No: [id number] EXAM# TYPE/EXAM RESULT [id number] MRI/MRI Shoulder Without Con Left REPORT SIGNED IN OTHER VENDOR SYSTEM 05/13/2023 Reported By: Wilber Simon md CC: No Primary Care Physician; Franklin Maldonado M.D. Technologist: NATHAN VALADEZ(R)(CT) Dictated Date/Time: 05/13/2023 (6948) Brood Station Manager: SAM Printed Date/Time: 05/13/2023 (4167) PAGE 2 Signed Report AARON Coronado, [facility] [place] [place] 05/14/2023 10:51:38 Problems Name Problem SNOMED Code Status Onset Date Resolution Date Notes Provider Name and Address Organization Details Recorded Time Pain of left shoulder joint [id number] 09 Active 2022 Tammie Erica castro [facility] [place] [place] 12:25:12 Problem Notes None recorded. Procedures Surgical History Date Name Laterality Status Provider Name and Address Organization Details Recorded Time 04/19/20 Corticosteroid Injection completed Franklin Maldonado MD [address] [place] [address], [place], [address], [facility] 04/19/2023 15:29:41 05/05/20 Date of Last Pap Smear completed Rhiannon Harp BARNEY MARY GUERRA Becky [place] 04/06/2022 16:27:07 02/28/20 21 Date of Last Mammogram completed Rhiannon HarpBARNEY MARY GUERRA Becky [place] 04/06/2022 16:26:46 07/30/19 15 abdominoplasty completed Rhiannon HarpBARNEY MARY Becky CHARLIE Becky [place] 04/06/2022 16:29:00 07/30/19 13 removal of gastric band completed Rhiannon HarpBARNEY CHARLIE Becky [place] 04/06/2022 16:29:40 07/30/19 09 open reduction of fracture with internal fixation completed Rhiannon CallahanBARNEY gallo CHARLIE Becky [place] 04/06/2022 16:28:48 07/30/19 08 banding of varix of stomach completed Rhiannno CallahanBARNEY gallo CHARLIE Becky [place] 04/06/2022 16:29:29 07/30/19 07 laser assisted in situ keratomileusis completed Rhiannon HarpBARNEY CHARLIE Becky [place] 04/06/2022 16:29:16 07/30/18 93 tonsillectomy completed Rhiannon GomesBARNEY zhang MARY Becky CHARLIE Becky [place] 04/06/2022 16:28:33 Imaging Results None recorded. Procedure Notes None recorded. Medical Equipment None Reported. Allergies Allergen ID Allergen Name Allergen Category Reaction Reaction Severity Criticality Documentation Date Start Date Code Code System Note Provider Name and Address Organization Details Recorded Time 650537 Substance with sulfonami de structure and antibacte rial mechanism of action (substanc e) medicatio n Not available Not available Not available 04/10/2023 19178 8003 SNOMED Rhiannon HarpBARNEY MAYR GUERRA Becky [place] 09:20:04 Medications Name Sig Start Date Stop Date Status Note LastModified by Organization Details LastModified Time celecoxib 200 mg capsule TAKE 1 CAPSULE BY MOUTH ON MORNING OF SURGERY 04/10 completed Not Available Not Available Not Available trazodone 50 mg tablet 04/06 completed Not Available Not Available Not Available azithromyci n 250 mg tablet 04/06 completed Not Available Not Available Not Available phentermine 15 mg capsule TAKE 1 CAPSULE BY MOUTH EVERY DAY DIRECTED 03/05 completed Not Available Not Available Not Available phentermine 37.5 mg tablet TAKE 1 TABLET BY MOUTH EVERY DAY IN THE MORNING 03/05 completed Not Available Not Available Not Available ondansetron 8 mg disintegrat ing tablet DISSOLVE 1 TABLET ON THE TONGUE EVERY 8 HOURS 03/05 completed Not Available Not Available Not Available oxycodone-a cetaminophe n 5 mg-325 mg tablet TAKE 1 TABLET BY MOUTH EVERY 6 HOURS NEEDED FOR PAIN OR ACUTE SURGICAL PAIN 04/10 completed Not Available Not Available Not Available alprazolam 0.25 mg tablet TAKE 1 TABLET BY MOUTH DAILY FOR 5 DAYS NEEDED FOR ANXIETY 04/10 completed Not Available Not Available Not Available cephalexin 500 mg capsule TAKE 1 CAPSULE BY MOUTH THREE TIMES DAILY 04/10 completed Not Available Not Available Not Available nitrofurant oin macrocrysta l 100 mg capsule 04/06 completed Not Available Not Available Not Available gabapentin 300 mg capsule TAKE 1 CAPSULE AT NIGHT PRIOR TO SURGERY AND 1 CAPSULE MORNING OF SURGERY 04/10 completed Not Available Not Available Not Available gabapentin 100 mg capsule TAKE 1 CAPSULE BY MOUTH THREE TIMES DAILY NEEDED 03/05 completed Not Available Not Available Not Available scopolamine 1 mg over 3 days transdermal patch APPLY 1 PATCH ON THE SKIN BEHIND EAR 4 HOURS BEFORE SURGERY 03/05 completed Not Available Not Available Not Available methylpredn isolone 4 mg tablets in a dose pack 04/06 completed Not Available Not Available Not Available ondansetron 4 mg disintegrat ing tablet DISSOLVE 1 TABLET ON THE TONGUE EVERY 6 TO 8 HOURS NEEDED FOR NAUSEA 04/10 completed Not Available Not Available Not Available metformin ER 500 mg tablet,exte nded release 24 hr TAKE 1 TABLET BY MOUTH TWICE DAILY 04/10 completed Not Available Not Available Not Available doxycycline hyclate 100 mg tablet TAKE 1 TABLET BY MOUTH TWICE DAILY 03/05 completed Not Available Not Available Not Available diazepam 5 mg tablet Take 1 tablet every day by oral route as needed for 1 day. active Not Available Not Available No t Available oxycodone 5 mg tablet TAKE 1 TABLET BY MOUTH EVERY 6 HOURS NEEDED FOR ACUTE PAIN 03/05 completed Not Available Not Available Not Available cyclobenzap rine 5 mg tablet TAKE 1 TABLET BY MOUTH TWICE DAILY FOR 10 DAYS NEEDED FOR MUSCLE SPASMS 03/05 completed Not Available Not Available Not Available Ozempic 0.25 mg or 0.5 mg (2 mg/1.5 mL) subcutaneou s pen injector INJECT 0.5MG SUBCUTANE OUSLY ONCE A WEEK 03/05 completed Not Available Not Available Not Available Trulicity 4.5 mg/0.5 mL subcutaneou s pen injector INJECT 4.5 MG SUBCUTANE OUSLY ONCE A WEEK active Not Available Not Available No t Available Ozempic 1 mg/dose (4 mg/3 mL) subcutaneou s pen injector INJECT 1 MG SUBCUTANE OUSLY ONCE A WEEK 03/05 completed Not Available Not Available Not Available Ozempic 2 mg/dose (8 mg/3 mL) subcutaneou s pen injector INJECT 2 MG SUBCUTANE OUSLY ONCE A WEEK 03/05 completed Not Available Not Available Not Available Mounjaro 2.5 mg/0.5 mL subcutaneou s pen injector INJECT 1 SYRINGE SUBCUTANE OUSLY ONCE A WEEK active Not Available Not Available No t Available Vitals Date Recorded Body height Body mass index (BMI) Body weight Heart rate Respiratory rate Body temperature Systolic And Diastolic Provider Name and Address Organization Details Last Updated DateTime 3 167.64 cm 27.2 kg/m2 28601.6 7 g 86 /min 18 /min 98.1 [degF] 121/86 mm[Hg] Maura Castaneda [facility] [place] 17:26:41 Date Recorded Body height Body mass index (BMI) Body weight Heart rate Respiratory rate Body temperature Systolic And Diastolic Provider Name and Address Organization Details Last Updated DateTime 3 167.64 cm 27 kg/m2 34679.3 6 g 75 /min 18 /min 97.9 [degF] 105/79 mm[Hg] Maura Castaneda [facility] [place] 09:44:11 Date Recorded Body height Body mass index (BMI) Body weight Heart rate Systolic And Diastolic Provider Name and Address Organization Details Last Updated DateTime 04/19/2023 167.64 cm 27 kg/m2 47068.93 g 70 /min 110/72 mm[Hg] Tammie Maldonado [facility] [place] [place] 04/19/2023 15:23:10 Date Recorded Body height Body mass index (BMI) Body weight Heart rate Systolic And Diastolic Provider Name and Address Organization Details Last Updated DateTime 05/03/2023 167.64 cm 27 kg/m2 70768.93 g 67 /min 119/73 mm[Hg] [facility] [place] 15:48:43 Date Recorded Body height Body mass index (BMI) Body weight Heart rate Systolic And Diastolic Provider Name and Address Organization Details Last Updated DateTime 05/22/2023 167.64 cm 27 kg/m2 91590.93 g 72 /min 120/70 mm[Hg] [facility] [place] 15:57:58 Social History Question Answer Notes LastModified by [employer] Details LastModified Time Tobacco Smoking Status Never Smoker Rhiannon Callahansabino, BARNEY [facility], [facility] [place], [place] 04/06/2022 16:28:21 What Was The Date Of Your Most Recent Tobacco Screening? 04/06/2022 [facility] Information not available 04/06/2022 Sex: Unknown Functional Status Question Answer Note LastModified by [employer] Details LastModified Time Do you use any illicit or recreational drugs? No [facility] Information not available 04/06/2022 What is your level of alcohol consumption? Occasional [facility] Information not available 04/06/2022 Mental Status None recorded. Family History Relationship Description Onset Age of this Age Resolved Age Notes LastModified by Organization Details LastModified Time Mother Hypertensive disorder [facility] [place] Not available 2021 16:28:03 Father Malignant neoplastic disease [facility] [place] Not available 2021 16:28:09 Medical History Condition Response Other N Thyroid Disease N Blood Diseases N MRSA N Emphysema N Sexually Transmitted Disease N Depression N Breast Disease N Date of Last Pelvic Exam N Orthopedic Problems Y Anesthesia Complications N Anxiety Disorder N Seizures/Convulsions N Acid Reflux (GERD) N High Cholesterol/Hyperlipidemia N Breast Mass/Cyst N Infections in Tubes N Pain with [place] N Endometriosis N Bladder or Kidney Problems N Liver Disease N Sickle Cell Disease N Hypertension/High Blood Pressure N Asthma or Breathing Problems N Neurologic Disorders (MS, Stroke, Dizzin ess) N Difficulty Hearing N Nervous Disorder N Herpes N Loss of Urine when coughing or sneezing N Syphillis N EPILEPSY/SEIZURE N Cardiac Conditions N Anemia N PATIENT DENIES SIGNIFICANT PAST MEDICAL HISTORY N Abnormalities of Uterus N Communicable Illness N Heart Disease/Problems (A Fib, Arrythmia , Murmur, etc.) N Hay Fever N Diabetes N History of Rape or Sexual Assault N Endocrine/Metabolic Disorders (Thyroid) N Muscular Disorder N Blood Transfusions N Headaches or Migraines N Hypothroid N Hepatitis (Acute or Chronic) N 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 Parity - Full Term Deliveries 2 Date of Last Mammogram 02/27/2021 Date of LMP 05/13/2020 1. 3 4. Parity - /Miscarriages 1 Date of Last Pap Smear 05/05/2021 5. Parity - Living Children 2 Obstetrics History GPAL:G 3 P 2 0 1 2 Type Value Full Term 2 Spontaneous 1 Living 2 Total 3 Past Encounters Encounter ID Performer Location Encounter Start Date Encounter Closed Date Diagnosis/Indication Diagnosis SNOMED-CT Code Diagnosis ICD10 Code Diagnosis Note [id number] RUTH RICKS DO [facility] [address] [address] 04/06/2022 16:19:03 04/06/2022 17:26:59 Screening for malignant neoplasm of cervix 101338046 Z12.4 Screening mammography 24 549813 Z12.31 Gynecologi c examination 17156113 Z01.541 [id number] RUTH RICKS DO [facility] [address] [address] 03/05/2023 17:17:07 03/05/2023 17:53:02 Breast lump 10130499 N63.0 Will call with results. [id number] RUTH RICKS DO [facility] [address] [address] 04/10/2023 09:34:15 04/10/2023 10:11:41 Gynecologic examination 87903159 Z01.419 Screening mammography of left breast 0021462014 71825 Z12.31 [id number] MD SIOBHAN Lucero_Kehinde brannon [address] [address] 04/19/2023 15:07:11 04/19/2023 15:31:08 Impingement syndrome of left shoulder region 3492472556 01267 M75.42 [id number] MD SIOBHAN Lucero_Kehinde brannon [address] [address] 05/03/2023 15:28:35 05/03/2023 16:31:56 Pain of left shoulder joint 2731403975 3093680 M25.150 [id number] MD ISOBHAN Lucero_Kehinde brannon [address] [address] 05/22/2023 15:51:02 05/22/2023 16:04:19 Impingement syndrome of left shoulder region 0416082730 34347 M75.42 Health Concerns Section Related Observation LastModified by Organization Detai ls LastModified Time None Recorded Concern Status LastModified by Organization Details LastModified Time None Recorded Advance Directives Directive None Recorded Payers Insurance Date Sequence Insurance Name Policy Number Policy Looney Covered Member ID Looney Member ID Guarantor Name 05/25/2023 1 [id number] [id number] Tyler Larson [id number] Tyler Larson 03/05/2023 1 [employer] (POS II) [id number] Tyler Larson [id number] Tyler Larson Notes Date Note Type Note Provider Name and Address Organization Details Recorded Time 03/05/2023 text/html Patient is s/p mastopexy/augmentati on 12/07/22. Presents c/o a lump in her right breast about two weeks ago. She went to go see her breast surgeon and he told her to f/u with her refrigerating engineer. She examines her breast at least weekly. No other breast complaints. She had a cat 2 mammogram 05/11/22. Normal pap/neg HPV 04/06/22. RUTH RICKS, [address], [place], [address], [facility] 03/05/2023 18:52:34 04/10/2023 text/html Patient is here for a WWE. Pap/HPV neg 04/08/22. Had diagnostic right mammogram and ultrasound on 03/29/23 >>>increased echogenicity in the subdermal areas at the 7 and 9 O'clock position. Repeat in three months...this ordered, along with screening mammogram of the left breast. Denies PM symptoms or bleeding. Her previous annual in 2021 is as follows: patient is a 52-year-old female 3 para 2, postmenopausal presents for well-woman exam. She has mild premenopausal symptoms. She denies any history of any previous abnormal Pap smears. She denies any gynecological complaints including no sexual health issues. No hx of abnormal mammogram.Past medical history: NonePast surgical history tonsillectomy with adenoidectomy, LASIK surgery gastric band, left lower leg or RI after, gastric band removal. , abdominal plasty.Allergies: Sulfa medications.Social history patient is , she is a social drinker, denies any history of any tobacco use or recreational drug use. 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 RUTH RICKS, [address] [place], [address], [facility] 04/10/2023 10:13:00 04/19/2023 text/html patient here in follow-up for left shoulder pain. It has been going on for 2 months. She reports that she was recovering from surgery that she had a couple of months ago and she kept having to reach across to her nightstand to get things and it started becoming painful. Not painful every day. She rates her pain as an 8 out attend she can not reach and she is having difficulty sleeping. Franklin Maldonado MD [address], [place], [address], [facility] 04/19/2023 15:30:23 05/03/2023 text/html patient with continued left shoulder pain. We tried an injection and activity modification. She still has pain and weakness. It just did not improve much. Franklin Maldonado MD [address] [place], [address], [facility] [place] 05/08/2023 09:56:53 05/22/2023 text/html patient here in follow-up for left shoulder. She reports that she is doing okay. The injection did help some but she still has some soreness in the shoulder. We had performed an MRI and she is here for the results. Franklin Maldonado MD [address], [place], [address], [facility] [place] 05/24/2023 09:56:54 OBGyn Episode Ob Episode Information Episode Created Date Number of Fetuses Patient Bloodtype Patient rh Status Prepregnancy Weight lbs Domestic Partner Domestic Partner Phone Father Name Dormitory Supervisor Status 04/06/20 22 1 CLOSED Fetus Data First Name Last Name Admitted to NICU Weight (g) Sex Living Outcome Pediatric Complications Fetus ID Race Codes Race Delivery Type 4025.62 9 M Full Term [id number] VAGINAL DELIVERY Young Calculation Initial Young Date Initial Exam [...] Domestic Partner Domestic Partner Phone Father Name Dormitory Supervisor Status 04/06/20 22 1 CLOSED Fetus Data First Name Last Name Admitted to NICU Weight (g) Sex Living Outcome Pediatric Complications Fetus ID Race Codes Race Delivery Type 3175.14 4 M Full Term [id number] VAGINAL DELIVERY Young Calculation Initial Young Date Initial Exam [...] Domestic Partner Domestic Partner Phone Father Name Dormitory Supervisor Status 04/06/20 22 1 CLOSED Fetus Data First Name Last Name Admitted to NICU Weight (g) Sex Living Outcome Pediatric Complications Fetus ID Race Codes Race Delivery Type , Spontane ous [id number] Young Calculation Initial Young Date Initial Exam [...] Post Complications Tubal Sterilization Discharge Date Comments 4 Discharge Information Feeding Method Contraceptive Method Maternal HG B and HCT Levels
--- OUTSIDE RECORDS SUMMARY | 2025-02-09 12:55 | XMS_ITS | Data Portability ---
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 Lab estrad iol, serum 2023 024 [facility] (Scheduling), [address] [place] [address], [address], 4 08:57:54 testos terone , total, serum 2023 024 [facility] (Scheduling), [address] [place] [address], [address], 4 08:57:54 FSH (folli nash-st imulat ing hormon e), serum 2023 024 [facility] (Scheduling), [address] [place] [address], [address], 4 08:57:54 proges terone , serum 2023 024 [facility] (Scheduling), [address] [place], [address], 4 08:57:54 lh (lutei nizing hormon e), serum 2023 024 [facility] (Scheduling), [address] [place], [address], 4 08:57:54 CMP, serum or plasma 2023 024 [facility] (Scheduling), [address] [place], [address], 4 08:57:53 lipid panel, serum 2023 024 [facility] (Scheduling), [address] [place], [address], 4 08:57:53 TSH, serum or plasma 2023 024 [facility] (Scheduling), [address] [place], [address], 4 08:57:54 CBC w/ auto diff 2023 024 [facility] (Scheduling), [address] [place], [address], 4 08:57:54 Referral None record ed. Procedures None record ed. Surgeries None record ed. Imaging None record ed. Medication Orders Mounja ro 5 mg/0.5 mL subcut aneous pen inject or 2023 024 [id number], [address], [place], [id number], 14:53:00 Lexapr o [address] [facility] #39480, [address] [place], [place], [id number], 14:34:45 alpraz olam 0.25 mg tablet [address] [facility] #[id number], [address] [place], [place], [id number], 14:36:03 Patient TargetsNo targets recorded. Patient Instructions Encounter Date Encounter Id Patient Instructions Last Modified By Organization Details Last Modified Time 09/06/2023 [id number] calorie diet Not availab le 09/06/2023 14:34:16 walking for exercise: care instructions Not available 09/06/2023 14:34:16 Learning About Being Physically Active Not available 09/06/2023 14:34:16 diet and exercis e for metabolic syndrome: care instructions Not available 09/06/2023 14:34:16 exercise program : getting started Not available 09/06/2023 14:34:16 learning about healthy weight Not available 09/06/2023 14:34:16 eating healthy foods: care instructions Not available 09/06/2023 14:34:16 anxiety disorder : care instructions Not available 09/06/2023 14:34:16 depression treatment: care instructions Not available 09/06/2023 14:34:16 Reason for Referral None Reported. Results Created Date Observation Date Name Description Value Unit Range Abnormal Flag Note LastModifiedBy Organization Detail LastModifiedTime 04/05/2003/29/2023 , [facility] OSMAN MOTT [address] Phys: [place] [address] : 1969 Age: 53 Sex: F [phone] Acct: [id number] Loc: [facility]. Exam Date: 2022 Status : DEP CLI Qualit y Care, Right Here Radiol ogy No: [id number] Unit No: [id number] EXAM# TYPE/E XAM RESULT [id number] 471 [facility] Digita l Diag Unil Right [id number] 477 [facility] C US Breast Unilat eral Ri EXAM: WC Digita l Diag Unil Right, WC US Breast Unilat eral Right COMPAR TIFFANY: Mammog benigno 2019 HISTOR Y: Right breast lump FINDIN GS: Mammog benigno: No suspic ious mass or calcif icatio [...] scarri ng. Follow -up diagno stic mammog benigno and ultras ound in 3 months is recomm ended. ACR BI-RAD S Catego ry 3: Probab ly Benign Findin gs, Short Interv al Follow -Up Sugges darcy Discla antonia : Accord ing to the [place] an Cancer Societ y Women ages 40 [...] imatel y 20-25% or greate r lifeti mt PAGE 1 Signed Report (JA ALEXANDRA) Jared Irizarry [place] Name: OSMAN MOTT [address] Phys: [place] [address] : 1969 Age: 53 Sex: F Acct: [id number] Loc: [facility]. Exam Date: 2022 Status : DEP CLI Qualit y Care, Right Here Radiol ogy No: [id number] Unit No: [id number] EXAM# TYPE/E XAM RESULT [id number] 471 [facility]/ WC Digita l Diag Unil Right [id number] 477 [facility] C US Breast Unilat eral Ri risk [...] alex: 2022 (1849) PAGE 2 Signed Report [id number] [facility] [address], [place], [address], 05/30/2023 08:47:35 04/05/20 23 03/29/2023 MAMMO , diagn ostic , digit al, unila teral [facility] OSMAN MOTT [address] Phys: [place] [address] : 1969 Age: 53 Sex: F Acct: [id number] Loc: [facility]. Exam Date: 2022 Status : DEP CLI Qualit y Care, Right Here Radiol ogy No: [id number] Unit No: [id number] EXAM# TYPE/E XAM RESULT [id number] 471 [facility] WC Digita l Diag Unil Right [id number] 477 [facility] C US Breast Unilat eral Ri EXAM: WC Digita l Diag Unil Right, WC US Breast Unilat eral Right COMPAR TIFFANY: Mammog benigno 2019 HISTOR Y: Right breast lump FINDIN GS: Mammog benigno: No suspic ious mass or calcif icatio [...] scarri ng. Follow -up diagno stic mammog benigno and ultras ound in 3 months is recomm ended. ACR BI-RAD S Catego ry 3: Probab ly Benign Findin gs, Short Interv al Follow -Up Sugges darcy Discla antonia : Accord ing to the Americ an Cancer Societ y Women ages 40 [...] PAGE 1 Signed Report (JA NUED) [facility]: OSMAN MOTT [address] Phys: [place] [address] : 1969 Age: 53 Sex: F [phone] Acct: [id number] Loc: [facility]. Exam Date: 2022 Status : DEP CLI Qualit y Care, Right Here Radiol ogy No: [id number] Unit No: [id number] EXAM# TYPE/E XAM RESULT [id number] 471 [facility] WC Digita l Diag Unil Right [id number] 477 [facility] C US Breast Unilat eral Ri risk [...] signed by Willy izaguirre M.D. on 04/05/20 23 6:48 PM REPORT SIGNED IN OTHER VENDOR SYSTEM 2022 Report ed By: Willy izaguirre MD CC: No Primar y Care Physic chelsea; Marissa Ricks DO Techno logist : TESSIE FRANKEL ER RT(R)( M); Natalie Bansal RT(R) Dictat ed Date/T alex: 2022 ([id number]) Transc riptio nist: PSCRIB E Printe d Date/T alex: 2022 ([id number]) PAGE 2 Signed Report [id number] [facility] [address] , [place], [address], 05/30/2023 08:47:35 04/05/20 23 03/29/2023 MAMMO , diagn ostic , unila teral No observ ation record ed. [id number] [facility] (Scheduling) [address], [place], [address], 05/30/2023 08:47:35 05/13/20 23 05/11/2023 MRI, hector thompson, w/o contr ast [facility]SM[facility] MOTT [address] Phys: Franklin [place] [address] : 1969 Age: 53 Sex: F Acct: [id number] Loc: MRI. Exam Date: 2022 Status : REG CLI Qualit y Care, Right Here Radiol ogy No: [id number] Unit No: [id number] EXAM# TYPE/E XAM RESULT [id number] MRI/MR I Should er Withou t [...] and intrin sic signal involv ing the axle and frame mechanic ior supras pinatu s and infras pinatu [...] grossl y intact on this nonart [facility] exam. Long head biceps tendon is normal [...] for rotato r cuff tear or other international banker al derang ement. 2. Mild latera l acromi al downsl oping and trace subacr omial bursit is. Correl ate for imping ement. 3. Soft tissue thicke robby and edema of the capsul e sugges tive of capsul itis. PAGE 1 Signed Report (JA NUED) Jared [facility]mentsHe[facility]: OSMAN MOTT [address] [place] [address] Phys: Franklin [place] [address] : 1969 Age: 53 Sex: F Acct: [id number] Loc: MRI. Exam Date: 2022 Status : REG CLI Qualit y Care, Right Here Radiol ogy No: [id number] Unit No: [id number] EXAM# TYPE/E XAM RESULT [id number] MRI/MR I Should er Withou t [...] PSCRIB E Printe d Date/T alex: 2022 ([id number]) PAGE 2 Signed Report [id number] [facility] [address], [place], [address], 05/30/2023 08:47:35 07/11/20 23 07/10/2023 ina MILLER, lala teral [facility] Name: OSMAN MOTT [address] Phys: [place] [address] : 1969 Age: 53 Sex: F [phone] Acct: [id number] Loc: ALAN.I Exam Date: 2022 Status : DEP CLI Qualit y Care, Right Here Radiol ogy No: [id number] Unit No: [id number] EXAM# TYPE/E XAM RESULT [id number] [facility] Digita l Diagno stic Bilat [id number] 861 [facility] C US Breast Unilat eral Ri EXAM: WC Digita l Diagno stic Bilat, WC US Breast Unilat eral Right COMPAR TIFFANY: Mammog benigno 020, 2019 HISTOR Y: Follow -up for right breast asymme try FINDIN GS: Mammog benigno: There are scatte red areas of fibrog landul ar densit y in both breast s. No suspic ious mass or shadow ing. No signif icant interv al change . Ultras ound: Target ed ultras ound of the area of intere st in the right breast demons trates dense fibrog landul ar tissue and ductal ectasi a. A stable isoech oic area is presen t at the 7:00 positi on, 3 cm from the nipple , measur ing up to 1.4 x 0.8 x 0.2 cm. A stable isoech oic area is presen t at the 9:00 positi on, in the retroa reolar region , measur ing up to 1.5 cm x 0.6 x 1.3. IMPRES ELIEL: Stable isoech oic areas in the right breast are most likely benign . Follow -up diagno stic mammog benigno and ultras ound in 6 months is recomm ended. ACR BI-RAD S Catego ry 3: Probab ly Benign Findin gs, Short Interv al Follow -Up Sugges darcy Discla antonia : Accord ing to the [place] an Cancer Societ y Women ages 40 [...] should not discou rage follow up or PAGE 1 Signed Report (JA NUED) [facility] Name: OSMAN MOTT [address] Phys: Marissa Ricks [place] [address] : 1969 Age: 53 Sex: F Acct: [id number] Loc: [facility].I Exam Date: 2022 Status : DEP CLI Qualit y Care, Right Here Radiol ogy No: [id number] Unit No: [id number] EXAM# TYPE/E XAM RESULT [id number] 860 [facility] WC Digita l Diagno stic Bilat [id number] 861 [facility] C US Breast Unilat eral Ri biopsy of a clinic ally signif icant findin g and/or abnorm ality. Dense breast tissue may obscur e small neopla sms. Breast MRI is recomm ended for women with an approx imatel y 20-25% or greate r lifeti me risk of breast cancer , includ ing [...] ly signed by Willy izaguirre M.D. on 2022 11:49 AM REPORT SIGNED IN OTHER VENDOR SYSTEM 2022 Report ed By: Willy izaguirre MD CC: No Primar y Care Physic chelsea; Marissa Ricks DO Techno logist : TESSIE RIZO RT(R)( M); Natalie Bansal RT(R) Dictat ed Date/T alex: 2022 ([id number]) Transc riptio nist: PSCRIB E Printe d Date/T alex: 2022 ([id number]) PAGE 2 Signed Report [facility] [address] , [place], [address], 07/11/2023 14:40:15 07/11/20 23 07/10/2023 MAMMO , diagn ostic , digit al, bilat eral [facility] Name: OSMAN MOTT [address] Phys: [place] [address] : 1969 Age: 53 Sex: F Acct: [id number] Loc: AL[facility].I Exam Date: 2022 Status : DEP CLI Qualit y Care, Right Here Radiol ogy No: [id number] Unit No: [id number] EXAM# TYPE/E XAM RESULT [id number] 860 [facility] WC Digita l Diagno stic Bilat [id number] 861 [facility] C US Breast Unilat eral Ri EXAM: WC Digita l Diagno stic Bilat, WC US Breast Unilat eral Right COMPAR TIFFANY: Mammog benigno 020, 2019 HISTOR Y: Follow -up for right breast asymme try FINDIN GS: Mammog benigno: There are scatte red areas of fibrog landul ar densit y in both breast s. No suspic ious mass or shadow ing. No signif icant interv al change . Ultras ound: Target ed ultras ound of the area of intere st in the right breast demons trates dense fibrog landul ar tissue and ductal ectasi a. A stable isoech oic area is presen t at the 7:00 positi on, 3 cm from the nipple , measur ing up to 1.4 x 0.8 x 0.2 cm. A stable isoech oic area is presen t at the 9:00 positi on, in the retroa reolar region , measur ing up to 1.5 cm x 0.6 x 1.3. IMPRES ELIEL: Stable isoech oic areas in the right breast are most likely benign . Follow -up diagno stic mammog benigno and ultras ound in 6 months is recomm ended. ACR BI-RAD S Catego ry 3: Probab ly Benign Findin gs, Short Interv al Follow -Up Sugges darcy Miladis antonia : Accord ing to the [facility] an Cancer Societ y Women ages [...] should not discou rage follow up or PAGE 1 Signed Report (JA NUED) [facility] Name: OSMAN MOTT [address] Phys: [place] [address] : 1969 Age: 53 Sex: F Acct: [id number] Loc: [facility].I Exam Date: 2022 Status : DEP CLI Qualit y Care, Right Here Radiol ogy No: [id number] Unit No: [id number] EXAM# TYPE/E XAM RESULT [id number] [facility]/ WC Digita l Diagno stic Bilat [id number] 861 [facility] C US Breast Unilat eral Ri biopsy of a clinic ally signif icant findin g and/or abnorm ality. Dense breast tissue may obscur e small neopla sms. Breast MRI is recomm ended for women with an approx imatel y 20-25% or greate r lifeti me risk of breast cancer , includ ing [...] ly signed by Willy izaguirre M.D. on 2022 11:49 AM REPORT SIGNED IN OTHER VENDOR SYSTEM 2022 Report ed By: Willy izaguirre MD CC: No Primar y Care Physic chelsea; Marissa Ricks DO Techno logist : TESSIE RIZO RT(R)( M); Natalie Bansal RT(R) Dictat ed Date/T alex: 2022 ([id number]) Transc riptio nist: PSCRIB E Printe d Date/T alex: 2022 ([id number]) PAGE 2 Signed Report [facility] [address], [place], [address], 07/11/2023 14:40:16 07/11/20 23 07/10/2023 MAMMO , diagn ostic , digit al, bilat eral No observ ation record ed. [facility] Not Available 2022 14:40:16 01/22/20 24 01/22/2024 MAMMO , diagn ostic , digit al, unila teral [facility] Name: OSMAN MOTT [address] Phys: [place] [address] : 1969 Age: 53 Sex: F Acct: [id number] Loc: [facility].I Exam Date: 2023 Status : REG CLI Qualit y Care, Right Here Radiol ogy No: [id number] Unit No: [id number] EXAM# TYPE/E XAM RESULT [id number] [facility]/ WC Digita l Diag Unil Right Date of Exam: (Recei tali on: 9:54:5 8 AM) Reason for Exam: 6-ciarra h follow -up right breast for likely benign sonogr aphic findin gs at 7 and 9 oclock . EXAM: DIAGNO STIC RIGHT MAMMOG BENIGNO (DIGIT AL) AND LIMITE D RIGHT BREAST ULTRAS OUND. COMPAR TIFFANY: 2022, 023 DIAGNO STIC MAMMOG BENGINO VIEWS: CC, MLO, ML ID, CCID, MLOID. BREAST COMPOS ITION: C. The breast s are hetero geneou sly dense, which may obscur e small masses . FINDIN GS: The retrop ectora l silico ne implan t is intact . There is a stable focal asymme try with indist inct margin s in the axle and frame mechanic ior depth upper outer quadra nt at 9 oclock likely summat ion of fibrog landul ar tissue . Benign rim calcif icatio n noted. BREAST ULTRAS OUND (Ultra sound with perman ent images record ed.) COMPAR TIFFANY: 2022 FINDIN GS: Ultras ound evalua tion of the right breast perfor med from 7-10 oclock . Dense tissue is noted throug hout the imaged breast . No suspic ious cystic or solid masses identi fied. The previo us identi fied sonogr aphic areas are not seen on curren t exam. The visual ized implan t is intact . IMPRES ELIEL: 1. BI-RAD S Catego ry 2: Benign 2. Benign findin gs. Recomm end return to annual PAGE 1 Signed Report (JA NUED) [facility] Name: OSMAN MOTT [address] Phys: Marissa Ricks [place] [address] : 1969 Age: 53 Sex: F [phone] Acct: [id number] Loc: [facility].I Exam Date: 2023 Status : REG CLI Qualit y Care, Right Here Radiol ogy No: [id number] Unit No: [id number] EXAM# TYPE/E XAM RESULT [id number] 913 [facility]/ WC Digita l Diag Unil Right screen ing mammog deirdre marilyn faye. [facility] annual bilate ral screen ing mammog benigno is due 2023. Per FDA requir ements , a letter is sent to all mamm[facility] deirdre [facility] within 30 days of their study. Additi onal Inform ation Regard ing Mammog ashley: The Americ an Colleg e of Radiol ogy (ACR) and Societ y of Breast Imagin g (SBI) contin ue to recomm end that women get yearly mammog ashley starti ng at age 40. Clinic al Breast Exams should be part of a period ic health exam- about every 3 years for women in their 20s and 30s and every year for women 40 and over. Breast self exam is an option for women starti ng in their 20s. Any breast change noted on a breast self exam should be report ed prompt ly to the [facility] care provid er. A negati ve Mammog deirdre report should not discou rage follow up or biopsy of a clinic ally signif icant findin g and/or abnorm ality. Dense breast tissue may obscur e neopla sms. All report s both verbal and nonver bal are conduc darcy in the Centra l Time zone unless otherw ise specif ied. By Zev Yarbrough D.O. (Radio logist ) Electr onical ly signed by ZEV YARBROUGH D.O. 2023 - 13:36: 36 PAGE 2 Signed Report (JA NUED) [facility] Name: OSMAN MOTT [address] Phys: Ricks Chantalcuba [place] [address] : 1969 Age: 53 Sex: F [phone] Acct: [id number] Loc: [facility].I Exam Date: 2023 Status : REG CLI Qualit y Care, Right Here Radiol ogy No: [id number] Unit No: [id number] EXAM# TYPE/E XAM RESULT [id number] 913 [facility] Digita l Diag Unil Right L:585 R:bmw: T:bmw (dia36 0VR) REPORT SIGNED IN OTHER VENDOR SYSTEM 2023 Report ed By: Zev Yarbrough DO CC: Liberty Irizarry APRN; Marissa Ricks DO Techno logist : TESSIE FRANKEL ER RT(R)( M) Dictat ed Date/T alex: 2023 ([id number]) Transc riptio nist: DRAD.D OC Printe d Date/T alex: 2023 (1340) PAGE 3 Signed Report [facility] [address] [place] [address], [place], [address], 01/22/2024 17:10:18 01/22/20 24 01/22/2024 , lala andino [facility] Name: OSMAN MOTT [address] [place] [address] Phys: [place] [address] : 1969 Age: 53 Sex: F Acct: [id number] Loc: ALAN.I Exam Date: 2023 Status : REG CLI Qualit y Care, Right Here Radiol ogy No: [id number] Unit No: [id number] EXAM# TYPE/E XAM RESULT [id number] 914 [facility] C US Breast Unilat eral Right Date of Exam: (Recei tali on: 10:14: 57 AM) Reason for Exam: 6-ciarra h follow -up right breast for likely benign sonogr aphic findin gs at 7 and 9 oclock . EXAM: DIAGNO STIC RIGHT MAMMOG BENIGNO (DIGIT AL) AND LIMITE D RIGHT BREAST ULTRAS OUND. Ultras ound interp reted with perman ently record ed images . COMPAR TIFFANY: 2022, 023 DIAGNO STIC MAMMOG BENIGNO VIEWS: CC, MLO, ML ID, CCID, MLOID. BREAST COMPOS ITION: C. The breast s are hetero geneou sly dense, which may obscur e small masses . FINDIN GS: The retrop ectora l silico ne implan t is intact . There is a stable focal asymme try with indist inct margin s in the axle and frame mechanic ior depth upper outer quadra nt at 9 oclock likely summat ion of fibrog landul ar tissue . Benign rim calcif icatio n noted. BREAST ULTRAS OUND (Ultra sound with perman ent images record ed.) COMPAR TIFFANY: 2022 FINDIN GS: Ultras ound evalua tion of the right breast perfor med from 7-10 oclock . Dense tissue is noted throug hout the imaged breast . No suspic ious cystic or solid masses identi fied. The previo us identi fied sonogr aphic areas are not seen on curren t exam. The visual ized implan t is intact . IMPRES ELIEL: PAGE 1 Signed Report (JA NUED) Integr is [facility] Name: OSMAN MOTT [address] [place] [address] Phys: Marissa Ricks [place] [address] : 1969 Age: 53 Sex: F [phone] Acct: [id number] Loc: [facility].I Exam Date: 2023 Status : REG CLI Qualit y Care, Right Here Radiol ogy No: [id number] Unit No: [id number] EXAM# TYPE/E XAM RESULT [id number] 914 [facility] C US Breast Unilat eral Right 1. BI-RAD S Catego ry 2: Benign 2. Benign findin gs. Recomm end return to annual screen ing mammog deirdre schedu le. The patien ts annual bilate ral screen ing mammog benigno is due 2023. All report s both verbal and nonver bal are conduc darcy in the Centra l Time zone unless otherw ise specif ied. By Zev Yarbrough D.O. (Radio logist ) Electr onical ly signed by ZEV YARBROUGH D.O. 2023 - 13:36: 57 L:585 R:bmw: T:bmw (dia36 0VR) REPORT SIGNED IN OTHER VENDOR SYSTEM 2023 Report ed By: Zev Yarbrough DO CC: Liberty Irizarry APRN; Marissa Ricks DO Techno logist : Shruthi Sinclair ms Dictat ed Date/T alex: 2023 (1340) Transc riptio nist: MARILEE.Billy OC Printe d Date/T alex: 2023 (1340) PAGE 2 Signed Report [facility] [address] , [place], [address], 01/22/2024 17:10:18 01/22/20 24 01/22/2024 US, lala andino No observ ation record ed. [facility] (Scheduling) [address] , [place], [address], 01/22/2024 17:10:19 Result Notes Documentation Provider Name and Address Organization Details Recorded Time Mri, Shoulder, W/o Contrast : [facility] Name: TYLER LARSON [address] [place] [address] Phys: Franklin Maldon[place] [address] : 1970 Age: 53 Sex: F [phone] Acct: [id number] Loc: MRI. Exam Date: 05/11/2023 Status: REG CLI Quality Care, Right Here Radiology No: [id number] Unit No: [id number] EXAM# TYPE/EXAM RESULT [id number] MRI/MRI Shoulder Without Con Left EXAM: MRI [...] of capsulitis. PAGE 1 Signed Report (CONTINUED) [facility] Name: TYLER LARSON [address] Phys: Franklin [place] [address] : 1970 Age: 53 Sex: F [phone] Acct: [id number] Loc: MRI. Exam Date: 05/11/2023 Status: [facility], Right Here Radiology No: [id number] Unit No: [id number] EXAM# TYPE/EXAM RESULT [id number] MRI/MRI Shoulder Without Con Left REPORT SIGNED IN OTHER VENDOR SYSTEM 05/13/2023 Reported By: Wilber Simon md CC: No Primary Care Physician; Franklin Maldonado M.D. Technologist: NATHAN VALADEZ(R)(CT) Dictated Date/Time: 05/13/2023 (1305) Second Miller: SAM Printed Date/Time: 05/13/2023 (9882) PAGE 2 Signed Report Not Available [facility] 05/30/2023 08:47:36 Mammo, Diagnostic, Digital, Bilateral : [facility] [place] Name: TLYER LARSON [address] Phys: [place] [address] : 1970 Age: 53 Sex: F [phone] Acct: [id number] Loc: ALAN.I Exam Date: 07/10/2023 Status: DEP CLI Quality Care, Right Here Radiology No: [id number] Unit No: [id number] EXAM# TYPE/EXAM RESULT [id number] [facility]/ Digital Diagnostic Bilat [id number] [facility]/ US Breast Unilateral Ri EXAM: Digital Diagnostic Bilat, US Breast Unilateral Right COMPARISON: Mammogram 03/29/2020, 05/11/2020 HISTORY: Follow-up for right breast asymmetry FINDINGS: Mammogram: There are scattered areas of fibroglandular density in both breasts. No suspicious mass or shadowing. No significant interval change. Ultrasound: Targeted ultrasound of the area of interest in the right breast demonstrates dense fibroglandular tissue and ductal ectasia. A stable isoechoic area is present at the 7:00 position, 3 cm from the nipple, measuring up to 1.4 x 0.8 x 0.2 cm. A stable isoechoic area is present at the 9:00 position, in the retroareolar region, measuring up to 1.5 cm x 0.6 x 1.3. IMPRESSION: Stable isoechoic areas in the right breast are most likely benign. Follow-up diagnostic mammogram and ultrasound in 6 months is recommended. ACR BI-RADS Category 3: Probably Benign Findings, Short Interval Follow-Up Suggested Disclaimer : According to the [place] Women ages 40 to 44 [...] report should not discourage follow up or PAGE 1 Signed Report (CONTINUED) [facility] Name: TYLER LARSON [address] [place] [address] Phys: Chalo Ricks [place] [address] : 1970 Age: 53 Sex: F [phone] Acct: [id number] Loc: [facility] Exam Date: 07/10/2023 Status: DEP [facility] Quality Care, Right Here Radiology No: [id number] Unit No: [id number] EXAM# TYPE/EXAM RESULT [id number] [facility]/ Digital Diagnostic Bilat [id number] [facility] US Breast Unilateral Ri biopsy of a clinically significant finding and/or abnormality. Dense breast tissue may obscure small neoplasms. Breast MRI is recommended for women with an approximately 20-25% or greater lifetime risk of breast cancer, including women with a strong family history of breast or ovarian cancer and women who have been treated for Hodgkin's disease. A result letter will be mailed to the patient within 30 days of exam. Thank you for allowing us to participate in the care of your patient. REPORT SIGNED IN OTHER VENDOR SYSTEM 07/11/2023 Reported By: Willy Begum MD CC: No Primary Care Physician; Chalo Ricks DO Technologist: KEELY FUCHS RT(R)(M); Natalie Bansal RT(R) Dictated Date/Time: 07/11/2023 (1152) Second Miller: [email or web address] Printed Date/Time: 07/11/2023 (1593) PAGE 2 Signed Report Rhiannon Harp LPN [facility] 07/11/2023 14:40:16 Mammo, Diagnostic, Digital, Unilateral : [facility] Name: TYLER LARSON [address] [place] [address] Phys: [place] [address] : 1970 Age: 53 Sex: F [phone] Acct: [id number] Loc: [facility] Exam Date: 01/22/2024 Status: REG [facility] Quality Care, Right Here Radiology No: [id number] Unit No: [id number] EXAM# TYPE/EXAM RESULT [id number] [facility]/ Digital Diag Unil Right Date of Exam: 01/22/2024 (Received on: 01/22/2024 9:54:58 AM) Reason for Exam: 6-month follow-up right breast for likely benign sonographic findings at 7 and 9 oclock. EXAM: DIAGNOSTIC RIGHT MAMMOGRAM (DIGITAL) AND LIMITED RIGHT BREAST ULTRASOUND. COMPARISON: 07/10/2023, 03/29/2023 DIAGNOSTIC MAMMOGRAM VIEWS: CC, MLO, ML ID,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
== END 2025-02-09 12:46 | disposition home or self-care (01) ==
LOC: ANHIMG 12:51
PROVIDERS: PCP Clinical Nurse Specialist; Visit Provider Obstetrics & Gynecology
DX: N64.89 Other specified disorders of breast (principal)
CPT/HCPCS: 76642; 77061; 77065; G0279